=== PATIENT | female | born 1980 | race Caucasian/White ===

== ENCOUNTER 2017-05-13 12:34 | Emergency (ER) | payer BC ==
[~2017-05-13] VITALS: Ht 172.7 cm; Wt 131.5 kg
[~2017-05-13 12:34] MED LIST: BUTALB-ACETAMI1 EACH PO; CIPROFLOXACIN500 M4 PO; CIPROFLOXACIN500 MG PO; COMPAZINE10 MG PO; GLUCOPHAGE1000 MG PO; HYDR25T PO; HYDROCHLOROTHIA25 M1 PO; HYDROCODONE BIT1 T11 PO; LISINOPRIL20 MG PO; LISINOPRIL40 MG PO; MELOXICAM7.5 MG PO; MOTRIN800 MG PO; POTASSIUM CITRA; PYRIDIUM100 MG PO; PYRIDIUM200 MG PO; VITAMIN D50000 I3 PO; ZOLOFT50 MG PO; Zofran4 MG PO
[2017-05-13 13:31] LABS: BASO # 0.1 10*3/uL (0.0-0.1); BASO % 0.7 % (0.0-1.0); EOS # 0.1 10*3/uL (0.0-0.4); EOS % 1.6 % (1.0-4.0); HEMATOCRIT 41.3 % (37.0-47.0); HEMOGLOBIN 14.6 g/dl (12.0-16.0); LYMPH # 2.8 10*3/uL (1.3-4.4); LYMPH % 37.1 % (27.0-41.0); MEAN CELL VOLUME 91.4 fl (81.0-99.0); MEAN CORPUSCULAR HGB 32.3 pg (27.0-31.0); MEAN CORPUSCULAR HGB CONC 35.4 g/dl (33.0-37.0); MONO # 0.4 10*3/uL (0.1-1.0); MONO % 5.2 % (3.0-9.0); NEUT # 4.2 10*3/uL (2.3-7.9); NEUT % 55.1 % (47.0-73.0); PLATELET COUNT AUTOMATED 305 10*3/uL (130-400); RED BLOOD COUNT 4.52 10*6/uL (4.10-5.10); RED CELL DISTRI WIDTH 12.2 % (0-14.5); WHITE BLOOD COUNT 7.7 10*3/uL (4.8-10.8)
[2017-05-13 13:36] LABS: BILIRUBIN NEGATIVE (NEGATIVE); BLOOD 1+ (NEGATIVE); CLARITY CLEAR (CLEAR); COLOR YELLOW (YELLOW); GLUCOSE NEGATIVE (NEGATIVE); KETONE NEGATIVE (NEGATIVE); LEUKO ESTERASE NEGATIVE (NEGATIVE); NITRITE NEGATIVE (NEGATIVE); PH 5.5 (5.0-9.0); PROTEIN 2+ (NEGATIVE); UROBILINOGEN 0.2 E.U./dl (0.2-1.0)
[2017-05-13 13:46] LABS: BACTERIA TRACE; URINE REFLEX COMMENT YES (NO)
[2017-05-13 13:48] LABS: ALBUMIN 3.5 gm/dl (3.1-4.5); ALKALINE PHOSPHATASE 83 U/L (45-117); BILIRUBIN, TOTAL 0.3 mg/dl (0.2-1.0); BUN 13 mg/dl (7-24); CARBON DIOXIDE 26 mmol/L (21-32); CHLORIDE 100 mmol/L (98-107); EST GLOM FILT AFRICAN AMERICAN > 60 ml/min; GLUCOSE 212 mg/dL (65-99); POTASSIUM 3.5 mmol/L (3.5-5.1); SGOT/AST 43 IU/L (3-35); SGPT/ALT 71 U/L (12-78); SODIUM 141 mmol/L (136-145); TOTAL PROTEIN 7.8 gm/dL (6.4-8.2)
[2017-05-13 13:51] LABS: TROPONIN I < 0.015 ng/ml (<0.045)
[2017-05-13 15:29] LABS: LA>2 REFLEX 2 HR DRAW NOW
[2017-05-14 13:04] LABS: LYME AB/TOTAL IMMUNOGLOBULINS <0.91 ISR (0.00-0.90)
== END 2017-05-13 17:15 | disposition home or self-care (01) ==
LOC: ED 12:34
PROVIDERS: Registered Nurse
DX: R10.9 Unspecified abdominal pain (principal); Z88.1 Allergy status to other antibiotic agents; Z88.2 Allergy status to sulfonamides; Z90.5 Acquired absence of kidney; Z79.899 Other long term (current) drug therapy

== ENCOUNTER 2018-02-20 09:03 | Emergency (ER) | payer BC ==
[~2018-02-20] VITALS: Ht 172.7 cm; Wt 128.4 kg
[2018-02-20 09:16] LABS: BILIRUBIN NEGATIVE (NEGATIVE); BLOOD NEGATIVE (NEGATIVE); CLARITY CLEAR (CLEAR); COLOR YELLOW (YELLOW); GLUCOSE 3+ (NEGATIVE); KETONE NEGATIVE (NEGATIVE); LEUKO ESTERASE NEGATIVE (NEGATIVE); NITRITE NEGATIVE (NEGATIVE); SPECIFIC GRAVITY 1.025 (1.005-1.030); UROBILINOGEN 0.2 E.U./dl (0.2-1.0)
[2018-02-20 09:28] LABS: BACTERIA 1+
[2018-02-20] MEDS ORDERED: ALLOPURINOL100 MG PO (09:29)
[2018-02-20 09:33] LABS: BASO # 0.1 10*3/uL (0.0-0.1); BASO % 0.6 % (0.0-1.0); EOS # 0.2 10*3/uL (0.0-0.4); HEMOGLOBIN 15.6 g/dl (12.0-16.0); LYMPH # 2.5 10*3/uL (1.3-4.4); MEAN CELL VOLUME 91.5 fl (81.0-99.0); MEAN CORPUSCULAR HGB 31.7 pg (27.0-31.0); MEAN CORPUSCULAR HGB CONC 34.7 g/dl (33.0-37.0); MEAN PLATELET VOLUME 10.4 fl (9.6-12.3); MONO # 0.5 10*3/uL (0.1-1.0); MONO % 5.4 % (3.0-9.0); NEUT # 5.2 10*3/uL (2.3-7.9); NEUT % 61.6 % (47.0-73.0); PLATELET COUNT AUTOMATED 264 10*3/uL (130-400); RED BLOOD COUNT 4.92 10*6/uL (4.10-5.10); RED CELL DISTRI WIDTH 12.2 % (0-14.5); WHITE BLOOD COUNT 8.5 10*3/uL (4.8-10.8)
[2018-02-20 09:48] LABS: ALBUMIN 3.2 gm/dl (3.1-4.5); ALKALINE PHOSPHATASE 89 U/L (45-117); BUN 11 mg/dl (7-24); CHLORIDE 102 mmol/L (98-107); CREATININE 0.84 mg/dL (0.55-1.02); POTASSIUM 4.2 mmol/L (3.5-5.1); SGOT/AST 23 IU/L (3-35); SGPT/ALT 45 U/L (12-78); SODIUM 135 mmol/L (136-145); TOTAL PROTEIN 7.9 gm/dL (6.4-8.2)
== END 2018-02-20 11:12 | disposition home or self-care (01) ==
LOC: ED 09:03
PROVIDERS: Nurse Practitioner Family
DX: N20.0 Calculus of kidney (principal); R73.9 Hyperglycemia, unspecified; R03.0 Elevated blood-pressure reading, without diagnosis of hypertension; G43.909 Migraine, unspecified, not intractable, without status migrainosus; Z90.5 Acquired absence of kidney; Z88.1 Allergy status to other antibiotic agents; Z79.899 Other long term (current) drug therapy

== ENCOUNTER 2018-04-08 21:50 | Emergency (ER) | payer BC ==
[~2018-04-08] VITALS: Ht 172.7 cm; Wt 124.7 kg
[~2018-04-08 21:50] MED LIST changes: +ALLOPURINOL100 MG PO
[2018-04-08 22:18] LABS: BASO # 0.1 10*3/uL (0.0-0.1); BASO % 0.7 % (0.0-1.0); EOS # 0.2 10*3/uL (0.0-0.4); EOS % 1.9 % (1.0-4.0); HEMATOCRIT 41.2 % (37.0-47.0); HEMOGLOBIN 14.6 g/dl (12.0-16.0); LYMPH # 4.1 10*3/uL (1.3-4.4); MEAN CELL VOLUME 90.7 fl (81.0-99.0); MEAN CORPUSCULAR HGB 32.2 pg (27.0-31.0); MEAN CORPUSCULAR HGB CONC 35.4 g/dl (33.0-37.0); MEAN PLATELET VOLUME 10.2 fl (9.6-12.3); MONO # 0.5 10*3/uL (0.1-1.0); MONO % 4.2 % (3.0-9.0); NEUT # 7.8 10*3/uL (2.3-7.9); NEUT % 60.8 % (47.0-73.0); PLATELET COUNT AUTOMATED 309 10*3/uL (130-400); RED BLOOD COUNT 4.54 10*6/uL (4.10-5.10); RED CELL DISTRI WIDTH 12.2 % (0-14.5); WHITE BLOOD COUNT 12.9 10*3/uL (4.8-10.8)
[2018-04-08 22:28] LABS: BILIRUBIN NEGATIVE (NEGATIVE); BLOOD 1+ (NEGATIVE); CLARITY SL CLOUDY (CLEAR); COLOR YELLOW (YELLOW); GLUCOSE 1+ (NEGATIVE); KETONE TRACE (NEGATIVE); LEUKO ESTERASE NEGATIVE (NEGATIVE); NITRITE NEGATIVE (NEGATIVE); PH 6.5 (5.0-9.0); SPECIFIC GRAVITY >= 1.030 (1.005-1.030)
[2018-04-08 22:32] LABS: ALBUMIN 3.2 gm/dl (3.1-4.5); ALKALINE PHOSPHATASE 83 U/L (45-117); BUN 14 mg/dl (7-24); CHLORIDE 102 mmol/L (98-107); CREATININE 1.05 mg/dL (0.55-1.02); LIPASE 438 U/L (73-393); POTASSIUM 3.6 mmol/L (3.5-5.1); SGOT/AST 25 IU/L (3-35); SGPT/ALT 49 U/L (12-78); SODIUM 140 mmol/L (136-145); TOTAL PROTEIN 7.2 gm/dL (6.4-8.2)
[2018-04-08 22:45] LABS: BACTERIA 3+; EPITHELIAL CELLS 21-30
[2018-04-09] MEDS ORDERED: ZOFRAN ODT4 MG SL ×2 (01:05→01:06)
[2018-04-09] MEDS ORDERED: NORCO 5-325 TA1 EACH PO (01:06)
== END 2018-04-09 01:47 | disposition home or self-care (01) ==
LOC: ED 21:50
PROVIDERS: Physician Assistant
DX: K45.8 Other specified abdominal hernia without obstruction or gangrene (principal); Z79.899 Other long term (current) drug therapy; Z88.2 Allergy status to sulfonamides; Z88.8 Allergy status to other drugs, medicaments and biological substances; Z90.49 Acquired absence of other specified parts of digestive tract

== ENCOUNTER → 2018-04-16 | Outpatient (CLI) | payer BC ==
[~2018-04-16] MED LIST changes: +NORCO 5-325 TA1 EACH PO; +ZOFRAN ODT4 MG SL
[2018-04-16 13:28] LABS: BILIRUBIN NEGATIVE (NEGATIVE); BLOOD NEGATIVE (NEGATIVE); COLOR YELLOW (YELLOW); GLUCOSE NEGATIVE (NEGATIVE); KETONE NEGATIVE (NEGATIVE); LEUKO ESTERASE NEGATIVE (NEGATIVE); NITRITE NEGATIVE (NEGATIVE); SPECIFIC GRAVITY 1.025 (1.005-1.030); UROBILINOGEN 0.2 E.U./dl (0.2-1.0)
[2018-04-16 13:38] LABS: BACTERIA 2+; CLARITY SL CLOUDY (CLEAR)
[2018-04-16 13:39] LABS: BASO # 0.1 10*3/uL (0.0-0.1); BASO % 0.8 % (0.0-1.0); EOS # 0.2 10*3/uL (0.0-0.4); HEMATOCRIT 41.4 % (37.0-47.0); HEMOGLOBIN 14.3 g/dl (12.0-16.0); LYMPH # 2.8 10*3/uL (1.3-4.4); LYMPH % 35.1 % (27.0-41.0); MEAN CELL VOLUME 90.6 fl (81.0-99.0); MEAN CORPUSCULAR HGB 31.3 pg (27.0-31.0); MEAN CORPUSCULAR HGB CONC 34.5 g/dl (33.0-37.0); MEAN PLATELET VOLUME 10.1 fl (9.6-12.3); MONO # 0.4 10*3/uL (0.1-1.0); MONO % 4.8 % (3.0-9.0); NEUT # 4.5 10*3/uL (2.3-7.9); NEUT % 56.8 % (47.0-73.0); PLATELET COUNT AUTOMATED 261 10*3/uL (130-400); RED BLOOD COUNT 4.57 10*6/uL (4.10-5.10); RED CELL DISTRI WIDTH 12.2 % (0-14.5); WHITE BLOOD COUNT 7.9 10*3/uL (4.8-10.8)
[2018-04-16 13:53] LABS: BUN 11 mg/dl (7-24); CHLORIDE 104 mmol/L (98-107); CREATININE 0.87 mg/dL (0.55-1.02); POTASSIUM 3.8 mmol/L (3.5-5.1); SODIUM 140 mmol/L (136-145)
[2018-04-16 14:28] LABS: ACT PARTIAL THROMBO TIME 21.9 SECONDS (20.8-31.5); INTERNATIONAL NORM RATIO 0.9 (2.0-3.5)
== END | disposition home or self-care (01) ==
LOC: LAB 12:32
PROVIDERS: Surgery
DX: K46.9 Unspecified abdominal hernia without obstruction or gangrene (principal)

== ENCOUNTER → 2018-04-22 | Day surgery (SDC) | payer BC ==
[2018-04-22] VITALS (8 sets, daily range): BP systolic 127–149; BP diastolic 74–85
[~2018-04-22] VITALS: Ht 172.7 cm; Wt 124.7 kg
--- NOTE | ~2018-04-22 | O ---
[place], [place] OPERATIVE NOTE NAME: [facility]ÍA ERVIN [facility] [id number] UNIT #: [id number] ROOM: DOCTOR: ZAKI ORR MD BIRTHDATE: [birth year] DOS: 04/22/2018 PREOPERATIVE DIAGNOSIS: Ventral hernia (spigelian). POSTOPERATIVE DIAGNOSIS: Ventral hernia (spigelian). PROCEDURE: Repair of ventral hernia. SURGEON: Zaki Orr MD [facility] DIRECTOR: ROGELIO. ANESTHESIA: General. 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 The procedure and its complications were explained to the patient in detail preoperatively. Complications that were discussed included but were not limited to bleeding, infection, hematoma/seroma/abscess formation, damage to lying vital structures and recurrence. She agreed to proceed. DESCRIPTION OF PROCEDURE: After identifying the patient, the patient was brought to the operating suite and laid in the supine position. After induction of general anesthesia, time-out procedure was called and the parts were then painted and draped in the usual sterile fashion. A transverse incision was made over the area of the hernia. The skin and the subcutaneous tissue were incised. The musculature was identified and the fascia was incised. The hernial defect was identified in the intramuscular plane, which was approximately 0.5 cm in diameter. At this point, the musculature was approximated with the help of interrupted 0 Prolene in order to close the defect. The fascia was approximated as well with the help of 0 Prolene in an interrupted fashion. The subcutaneous tissue was then irrigated and approximated with the help of 3-0 Vicryl in a running fashion and the skin edges approximated with the help of 4-0 Vicryl in a subcuticular running fashion after the edges were infiltrated with 1% plain lidocaine. A dressing was placed. The patient tolerated the procedure well and was taken to the recovery room in stable fashion. There were no complications. Dr. Zaki Orr, the attending surgeon, was present throughout the operating case. [place], [place] OPERATIVE NOTE NAME: MARÍA ERVIN UNIT #: [id number] ROOM: DOCTOR: ZAKI ORR MD BIRTHDATE: [birth year] Zaki Orr MD CM:MAHIORD:OPERATIVE NOTE [id number] ZAKI ORR MD 04/22/18 1237 interface
== END | disposition home or self-care (01) ==
LOC: SDC 04-16 12:30
DX: K43.9 Ventral hernia without obstruction or gangrene (principal); I10 Essential (primary) hypertension; F41.9 Anxiety disorder, unspecified; F32.9 Major depressive disorder, single episode, unspecified; G47.33 Obstructive sleep apnea (adult) (pediatric); E66.01 Morbid (severe) obesity due to excess calories; Z98.890 Other specified postprocedural states; Z90.5 Acquired absence of kidney; Z87.442 Personal history of urinary calculi; Z79.899 Other long term (current) drug therapy; Z88.8 Allergy status to other drugs, medicaments and biological substances; Z83.3 Family history of diabetes mellitus; Z80.0 Family history of malignant neoplasm of digestive organs; Z87.01 Personal history of pneumonia (recurrent); Z90.49 Acquired absence of other specified parts of digestive tract; Z68.41 Body mass index [BMI] 40.0-44.9, adult; Z87.440 Personal history of urinary (tract) infections; Z82.49 Family history of ischemic heart disease and other diseases of the circulatory system

== ENCOUNTER 2019-03-17 18:52 | Emergency (ER) | payer BC ==
[~2019-03-17] VITALS: Ht 172.7 cm; Wt 122.5 kg
[~2019-03-17 18:52] MED LIST changes: +CIPRO500 MG PO; +MIRALAX POWDER17 G1 PO
[2019-03-17 19:21] LABS: BILIRUBIN NEGATIVE (NEGATIVE); BLOOD 3+ (NEGATIVE); CLARITY SL CLOUDY (CLEAR); COLOR YELLOW (YELLOW); GLUCOSE NEGATIVE (NEGATIVE); KETONE NEGATIVE (NEGATIVE); LEUKO ESTERASE NEGATIVE (NEGATIVE); NITRITE NEGATIVE (NEGATIVE); UROBILINOGEN 0.2 E.U./dl (0.2-1.0)
[2019-03-17 19:38] LABS: BACTERIA 3+; EPITHELIAL CELLS 15-20; RBC TNTC rbc/hpf (0-2); WBC 21-30 wbc/hpf (0-5)
[2019-03-17 20:05] LABS: BASO # 0.1 10*3/uL (0.0-0.1); BASO % 0.7 % (0.0-1.0); EOS # 0.2 10*3/uL (0.0-0.4); EOS % 1.4 % (1.0-4.0); HEMATOCRIT 41.8 % (37.0-47.0); HEMOGLOBIN 14.6 g/dl (12.0-16.0); LYMPH # 3.2 10*3/uL (1.3-4.4); LYMPH % 28.2 % (27.0-41.0); MEAN CELL VOLUME 91.7 fl (81.0-99.0); MEAN CORPUSCULAR HGB CONC 34.9 g/dl (33.0-37.0); MEAN PLATELET VOLUME 9.7 fl (9.6-12.3); MONO # 0.6 10*3/uL (0.1-1.0); MONO % 4.9 % (3.0-9.0); NEUT # 7.3 10*3/uL (2.3-7.9); NEUT % 64.4 % (47.0-73.0); PLATELET COUNT AUTOMATED 277 10*3/uL (130-400); RED BLOOD COUNT 4.56 10*6/uL (4.10-5.10); RED CELL DISTRI WIDTH 12.6 % (0-14.5); WHITE BLOOD COUNT 11.3 10*3/uL (4.8-10.8)
[2019-03-17 20:21] LABS: ALBUMIN 3.2 gm/dl (3.1-4.5); ALKALINE PHOSPHATASE 70 U/L (45-117); BUN 10 mg/dl (7-24); CHLORIDE 105 mmol/L (98-107); CREATININE 0.83 mg/dL (0.55-1.02); LIPASE 258 U/L (73-393); POTASSIUM 3.5 mmol/L (3.5-5.1); SGOT/AST 14 IU/L (3-35); SGPT/ALT 36 U/L (12-78); SODIUM 138 mmol/L (136-145); TOTAL PROTEIN 7.6 gm/dL (6.4-8.2)
[2019-03-17] MEDS ORDERED: AUGMENTIN 875875 MG PO (22:29)
[2019-03-17] MEDS ORDERED: NORCO 5-325 TA1 EACH PO (22:32)
[2019-04-20] MEDS ORDERED: CEFUROXIME250 MG PO (17:47)
== END 2019-03-17 22:44 | disposition home or self-care (01) ==
LOC: ED 18:52
PROVIDERS: Emergency Medicine
DX: N39.0 Urinary tract infection, site not specified (principal); N13.2 Hydronephrosis with renal and ureteral calculous obstruction; G43.909 Migraine, unspecified, not intractable, without status migrainosus; Z88.2 Allergy status to sulfonamides; Z79.899 Other long term (current) drug therapy; Z90.5 Acquired absence of kidney; Z96.0 Presence of urogenital implants

== ENCOUNTER → 2019-06-10 | Outpatient (CLI) | payer BC ==
[~2019-06-10] MED LIST changes: +AUGMENTIN 875875 MG PO; +CEFUROXIME250 MG PO
[2019-06-10 14:14] LABS: BILIRUBIN NEGATIVE (NEGATIVE); BLOOD TRACE-LYSED (NEGATIVE); CLARITY SL CLOUDY (CLEAR); COLOR YELLOW (YELLOW); GLUCOSE NEGATIVE (NEGATIVE); KETONE 1+ (NEGATIVE); LEUKO ESTERASE NEGATIVE (NEGATIVE); NITRITE POSITIVE (NEGATIVE); SPECIFIC GRAVITY >= 1.030 (1.005-1.030); UROBILINOGEN 0.2 E.U./dl (0.2-1.0)
[2019-06-10 14:29] LABS: ALBUMIN 3.2 gm/dl (3.1-4.5); BACTERIA 2+; CREATININE 1.25 mg/dL (0.55-1.02); PHOSPHOROUS 2.5 mg/dL (2.5-4.9); POTASSIUM 3.6 mmol/L (3.5-5.1); WBC TNTC wbc/hpf (0-5)
== END | disposition home or self-care (01) ==
LOC: LAB 13:32
PROVIDERS: Internal Medicine Nephrology
DX: R80.9 Proteinuria, unspecified (principal)

== ENCOUNTER → 2019-06-13 | Outpatient (CLI) | payer BC | END | disposition home or self-care (01) | LOC: ORTHO 00:48 | DX: M25.561 Pain in right knee (principal) ==

== ENCOUNTER → 2019-11-03 | Outpatient (CLI) | payer BC ==
[2019-11-03 17:29] LABS: FREE T4 1.59 ng/dl (0.76-1.46); THYROID STIM HORMONE (HS) 0.038 uIU/ml (0.358-4.75)
== END | disposition home or self-care (01) ==
LOC: US 15:47
PROVIDERS: Nurse Practitioner Primary Care
DX: E04.1 Nontoxic single thyroid nodule (principal); R59.0 Localized enlarged lymph nodes; R79.89 Other specified abnormal findings of blood chemistry

== ENCOUNTER → 2020-04-25 | Outpatient (CLI) | payer BC | END | disposition home or self-care (01) | LOC: CARD 10:00 | DX: I10 Essential (primary) hypertension (principal); R00.2 Palpitations ==

== ENCOUNTER → 2020-04-26 | Outpatient (CLI) | payer BC | END | disposition home or self-care (01) | LOC: RESCLI 10:59 | DX: E11.9 Type 2 diabetes mellitus without complications (principal); E66.01 Morbid (severe) obesity due to excess calories; E55.9 Vitamin D deficiency, unspecified; F39 Unspecified mood [affective] disorder; M10.9 Gout, unspecified; E28.2 Polycystic ovarian syndrome; G43.909 Migraine, unspecified, not intractable, without status migrainosus; G47.30 Sleep apnea, unspecified; Z68.41 Body mass index [BMI] 40.0-44.9, adult; Z79.899 Other long term (current) drug therapy; Z90.49 Acquired absence of other specified parts of digestive tract; Z98.890 Other specified postprocedural states ==

== ENCOUNTER 2020-07-22 12:56 | Emergency (ER) | payer BC ==
[~2020-07-22] VITALS: Ht 172.7 cm; Wt 124.7 kg
[2020-07-22 14:14] LABS: BASO # 0.1 10*3/uL (0.0-0.1); BASO % 0.8 % (0.0-1.0); EOS # 0.2 10*3/uL (0.0-0.4); EOS % 2.6 % (1.0-4.0); HEMATOCRIT 38.2 % (37.0-47.0); LYMPH # 2.6 10*3/uL (1.3-4.4); LYMPH % 32.9 % (27.0-41.0); MEAN CELL VOLUME 92.9 fl (81.0-99.0); MEAN CORPUSCULAR HGB 31.1 pg (27.0-31.0); MEAN CORPUSCULAR HGB CONC 33.5 g/dl (33.0-37.0); MEAN PLATELET VOLUME 9.8 fl (9.6-12.3); MONO # 0.4 10*3/uL (0.1-1.0); MONO % 5.2 % (3.0-9.0); NEUT # 4.6 10*3/uL (2.3-7.9); NEUT % 58.1 % (47.0-73.0); PLATELET COUNT AUTOMATED 247 10*3/uL (130-400); RED BLOOD COUNT 4.11 10*6/uL (4.10-5.10); RED CELL DISTRI WIDTH 12.3 % (0-14.5); WHITE BLOOD COUNT 7.9 10*3/uL (4.8-10.8)
[2020-07-22 14:16] LABS: ALBUMIN 3.1 gm/dl (3.1-4.5); ALKALINE PHOSPHATASE 75 U/L (45-117); BUN 13 mg/dl (7-24); CHLORIDE 110 mmol/L (98-107); CREATININE 0.82 mg/dL (0.55-1.02); POTASSIUM 3.8 mmol/L (3.5-5.1); SGOT/AST 15 IU/L (3-35); SGPT/ALT 33 U/L (12-78); SODIUM 136 mmol/L (136-145); TOTAL PROTEIN 7.2 gm/dL (6.4-8.2)
[2020-07-22 14:20] LABS: BILIRUBIN NEGATIVE; CLARITY CLOUDY (CLEAR); COLOR YELLOW (YELLOW); GLUCOSE NEGATIVE; KETONE NEGATIVE; SPECIFIC GRAVITY 1.025 (1.001-1.030)
[2020-07-22 14:21] LABS: BLOOD NEGATIVE (NEGATIVE); LEUKO ESTERASE 1+ (NEGATIVE); NITRITE NEGATIVE (NEGATIVE); PH 6.5 (4.5-8.0); UROBILINOGEN 0.2 E.U./dl (0.0-1.0)
[2020-07-22 14:22] LABS: BACTERIA 2+; EPITHELIAL CELLS TNTC; RBC 0-2 rbc/hpf (0-2); WBC 31-40 wbc/hpf (0-5)
[2020-07-22] MEDS ORDERED: OMNICEF300 MG PO (18:10)
[2020-07-23] MEDS ORDERED: VITAMIN D350 MC2 PO (13:43)
[2020-07-23] MEDS ORDERED: LISINOPRIL20 MG PO (13:44)
[2020-07-23] MEDS ORDERED: VICTOZA 3-0.6 MG/0.1 SQ (13:45)
[2020-07-23] MEDS ORDERED: ZOLOFT50 MG PO (13:45)
[2020-07-23] MEDS ORDERED: BUSPAR5 MG PO (13:46)
== END 2020-07-22 18:20 | disposition home or self-care (01) ==
LOC: ED 12:56
PROVIDERS: Nurse Practitioner Family
DX: N39.0 Urinary tract infection, site not specified (principal); Z88.8 Allergy status to other drugs, medicaments and biological substances; Z79.899 Other long term (current) drug therapy

== ENCOUNTER 2020-07-23 10:14 | Inpatient (IN) | payer BC ==
[~2020-07-23] VITALS: Ht 172.7 cm; Wt 125.0 kg
[~2020-07-23 10:14] MED LIST changes: +OMNICEF300 MG PO
[2020-07-23 10:34] VITALS: BP 150/94
[2020-07-23 11:21] LABS: BASO # 0.1 10*3/uL (0.0-0.1); BASO % 0.8 % (0.0-1.0); EOS # 0.2 10*3/uL (0.0-0.4); EOS % 2.4 % (1.0-4.0); HEMATOCRIT 36.9 % (37.0-47.0); LYMPH # 2.2 10*3/uL (1.3-4.4); LYMPH % 27.7 % (27.0-41.0); MEAN CELL VOLUME 93.9 fl (81.0-99.0); MEAN CORPUSCULAR HGB 31.8 pg (27.0-31.0); MEAN CORPUSCULAR HGB CONC 33.9 g/dl (33.0-37.0); MONO # 0.4 10*3/uL (0.1-1.0); NEUT # 5.1 10*3/uL (2.3-7.9); NEUT % 63.6 % (47.0-73.0); PLATELET COUNT AUTOMATED 243 10*3/uL (130-400); RED BLOOD COUNT 3.93 10*6/uL (4.10-5.10); RED CELL DISTRI WIDTH 12.4 % (0-14.5)
[2020-07-23 11:36] LABS: BILIRUBIN NEGATIVE; BLOOD NEGATIVE (NEGATIVE); CLARITY CLOUDY (CLEAR); COLOR YELLOW (YELLOW); GLUCOSE NEGATIVE; KETONE NEGATIVE; LEUKO ESTERASE NEGATIVE (NEGATIVE); NITRITE NEGATIVE (NEGATIVE); UROBILINOGEN 0.2 E.U./dl (0.0-1.0)
[2020-07-23 11:37] LABS: EPITHELIAL CELLS 21-30
[2020-07-23 11:40] LABS: ALBUMIN 2.9 gm/dl (3.1-4.5); ALKALINE PHOSPHATASE 58 U/L (45-117); BUN 10 mg/dl (7-24); CHLORIDE 109 mmol/L (98-107); CREATININE 0.85 mg/dL (0.55-1.02); LIPASE 268 U/L (73-393); SGOT/AST 12 IU/L (3-35); SGPT/ALT 33 U/L (12-78); SODIUM 140 mmol/L (136-145); TOTAL PROTEIN 6.8 gm/dL (6.4-8.2)
[2020-07-23 11:40] LABS: BACTERIA 1+; MUCOUS 1+
[2020-07-23 12:13] VITALS: BP 129/75
--- NOTE | 2020-07-23 13:10 | NUR ---
PT TRANSPORTED TO ROOM 527 WITH ALL BELONGINGS, SBAR FAXED, REPORTS GIVEN AT BEDSIDE.
[2020-07-23 13:20] VITALS: BP 149/85
--- NOTE | 2020-07-23 13:20 | NUR ---
Time: 1319 A 39 year old FEMALE admitted to under services of MARIAH INIGUEZ DO. Pt. arrived via stretcher from ER. Chief complaint: LEFT SIDED ABDOMINAL PAIN THAT RADIATES AROUND TO HER BACK. STEWART LEVINE
[2020-07-23] MEDS ORDERED: VITAMIN D350 MC2 PO (13:43)
[2020-07-23] MEDS ORDERED: LISINOPRIL20 MG PO (13:44)
[2020-07-23] MEDS ORDERED: VICTOZA 3-0.6 MG/0.1 SQ (13:45)
[2020-07-23] MEDS ORDERED: ZOLOFT50 MG PO (13:45)
[2020-07-23] MEDS ORDERED: BUSPAR5 MG PO (13:46)
--- NOTE | 2020-07-23 14:08 | NUR ---
NOTIFIED MED REC UP TO DATE.
--- NOTE | 2020-07-23 14:26 | NUR ---
MEDICATED WITH PRN NORCO FOR CO LEFT SIDED ABDOMINAL PAIN THAT RADIATES AROUND TO HER BACK RATED A 6/10. WILL ASSESS EFFECTIVENESS.
--- NOTE | 2020-07-23 15:26 | NUR ---
NORCO EFFECTIVE PER PATIENT.
[2020-07-23 16:00] VITALS: BP 122/64
[2020-07-23 20:00] VITALS: BP 140/81
--- NOTE | 2020-07-23 21:25 | NUR ---
PT RESTING IN BED. RESP-EASY AND REUGLAR. BSG-130, SEE EMAR. C/O LEFT FLANK PAIN, RATES PAIN 5 ON PAIN SCALE 0-10. MEDICATED WITH NORCO PO PER PRN ORDER, SEE EMAR. IVF INFUSING WITH NO PROBLEM. SEE SHIFT ASSESSMENT. CALL LIGHT IN REACH.
--- NOTE | 2020-07-23 22:30 | NUR ---
RESTING IN BED. STATES PAIN MEDICATION HELPED. CALL LIGHT IN REACH.
[2020-07-24] VITALS: BP 122/61
--- NOTE | 2020-07-24 00:20 | NUR ---
PT RESTING IN BED. RESP-EASY AND REGULAR. IVF INFUSING WITH NO PROBLEM. NO C/O PAIN AT THIS TIME. CALL LIGHT IN REACH. SEE SHIFT ASSESSMENT.
[2020-07-24 06:49] LABS: BASO # 0.1 10*3/uL (0.0-0.1); BASO % 0.8 % (0.0-1.0); EOS # 0.2 10*3/uL (0.0-0.4); EOS % 2.8 % (1.0-4.0); HEMATOCRIT 35.7 % (37.0-47.0); LYMPH # 2.8 10*3/uL (1.3-4.4); LYMPH % 37.2 % (27.0-41.0); MEAN CELL VOLUME 94.2 fl (81.0-99.0); MEAN CORPUSCULAR HGB 31.4 pg (27.0-31.0); MEAN CORPUSCULAR HGB CONC 33.3 g/dl (33.0-37.0); MEAN PLATELET VOLUME 10.3 fl (9.6-12.3); MONO # 0.4 10*3/uL (0.1-1.0); MONO % 5.5 % (3.0-9.0); NEUT # 4.1 10*3/uL (2.3-7.9); NEUT % 53.3 % (47.0-73.0); PLATELET COUNT AUTOMATED 235 10*3/uL (130-400); RED BLOOD COUNT 3.79 10*6/uL (4.10-5.10); RED CELL DISTRI WIDTH 12.6 % (0-14.5); WHITE BLOOD COUNT 7.6 10*3/uL (4.8-10.8)
[2020-07-24 06:53] LABS: BUN 10 mg/dl (7-24); CHLORIDE 110 mmol/L (98-107); CREATININE 0.79 mg/dL (0.55-1.02); POTASSIUM 4.1 mmol/L (3.5-5.1); SODIUM 140 mmol/L (136-145)
[2020-07-24 08:00] VITALS: BP 144/71
--- NOTE | 2020-07-24 08:52 | NUR ---
medicated with po norco as ordered per pt request for c/o pain to left flank rated 8/10.
--- NOTE | 2020-07-24 10:00 | NUR ---
MEDICATION EFFECTIVE FOR PAIN PER PT.
[2020-07-24 12:00] VITALS: BP 136/69
--- NOTE | 2020-07-24 15:33 | NUR ---
MEDICATED WITH PO NORCO ORDERED PER PT REQUEST FOR C/O LEFT FLANK PAIN RATED 8/10.
[2020-07-24 16:00] VITALS: BP 127/71
--- NOTE | 2020-07-24 16:30 | NUR ---
MEDICATION EFFECTIVE FOR PAIN.
[2020-07-24 20:00] VITALS: BP 138/81
--- NOTE | 2020-07-24 20:38 | NUR ---
PT C/O LEFT FLANK PAIN, RATES PAIN 6 ON PAIN SCALE 0-10. MEDICATED WITH NORCO PO PER PRN ORDER, SEE EMAR. BSG-150. SKIN W/D. CALL LIGHT IN REACH.
--- NOTE | 2020-07-24 21:30 | NUR ---
PT RESTING IN BED WITH HOB ELEVATED. MEDICATION SEEMS TO BE EFFECTIVE. CALL LIGHT IN REACH.
[2020-07-25] VITALS: BP 117/51
--- NOTE | 2020-07-25 04:45 | NUR ---
PT C/O LEFT SIDE/RIB PAIN, RATES PAIN 7 ON PAIN SCALE 0-10. MEDICATED WITH NORCO PO PER PRN ORDER, SEE EMAR. CALL LIGHT INR EACH.
--- NOTE | 2020-07-25 05:40 | NUR ---
RESTING IN BED. STATES PAIN MEDICATION HELPS. CALL LIGHT IN REACH.
--- NOTE | 2020-07-25 06:10 | NUR ---
RESTING IN BED. NO C/O AT THIS TIME. BSG-145, SEE EMAR. CALL LIGHT IN REACH.
--- NOTE | 2020-07-25 07:00 | NUR ---
ARRIVED ON SHIFT, REPORT RECEIVED FROM OFFGOING NURSE, ASSUMED CARE OF PATIENT.
--- NOTE | 2020-07-25 07:00 | NUR ---
ARRIVED ON SHIFT, REPORT RECEIVED FROM OFFGOING NURSE, ASSUMED CARE OF PATIENT.
--- NOTE | 2020-07-25 07:45 | NUR ---
Shift chart check completed.
--- NOTE | 2020-07-25 07:50 | NUR ---
INTRODUCED SELF TO PATIENT, BED IN LOW POSITION WITH WHEEL LOCKS ENGAGED, SIDE RAILS UP X 2 FOR TURNING AND REPOSITIONING, CALL LIGHT WITHIN REACH, NO NEEDS VOICED AT THIS TIME WHITE BOARD UPDATED.
--- NOTE | 2020-07-25 07:58 | NUR ---
Shift chart check completed.
[2020-07-25 08:00] VITALS: BP 120/63
--- NOTE | 2020-07-25 09:00 | NUR ---
[employer] [place] Yard[employer] in to talk to patient. Patient states lives at home with and family. There are no steps in the home. Physician: claudio montoya Pharmacy: [facility] Home health services: none Patient's level of ADLs: INDEPENDENT Patient has working utilities: all working DME: none Follow-up physician's appointment after d/c: will be made by hospitalist nurse director upon discharge Does patient want to access PORTAL?: no Discharge plan discussed with patient, she states she lives at home with family, she is independent in adls and ambulation, she states she will return home when discharged and denies any home needs, case mangaement will follow. CHILO KOWALSKI
--- NOTE | 2020-07-25 10:03 | NUR ---
PATIENT C/O LEFT FLANK PAIN 05/02 MEDICATED WITH NORCO ORDERED PRN
--- NOTE | 2020-07-25 11:00 | NUR ---
PER PATIENT NORCO EFFECTIVE FOR ABD PAIN CURRENT PAIN LEVEL 3/10
[2020-07-25 12:00] VITALS: BP 132/81
--- NOTE | 2020-07-25 14:08 | NUR ---
PATIENT C/O LEFT FLANL PAIN RATES 6/10 MEDICATED WITH NORCO ORDERED PRN.
--- NOTE | 2020-07-25 14:48 | NUR ---
Discharge instructions reviewed with patient/family. Patient receptive and verbalizes understanding. Follow-up care arranged. Written instructions given to patient/family, IV REMOVED, PATIENT NON-MONITORED, REFUSED W/C FOR DISCHARGE. DANAE CISSE
== END 2020-07-25 14:48 | disposition home or self-care (01) | DRG 690 ==
LOC: ED 10:14 → 4E 12:02 → EDHOLD 12:02 → 4E 12:57
PROVIDERS: Emergency Medicine; Internal Medicine; Physician Assistant; ADMIT Internal Medicine; ATTEND Internal Medicine
DX: N30.01 Acute cystitis with hematuria (principal); E44.0 Moderate protein-calorie malnutrition; Z68.41 Body mass index [BMI] 40.0-44.9, adult; E11.69 Type 2 diabetes mellitus with other specified complication; F41.9 Anxiety disorder, unspecified; I10 Essential (primary) hypertension; G43.909 Migraine, unspecified, not intractable, without status migrainosus; E66.01 Morbid (severe) obesity due to excess calories; E11.65 Type 2 diabetes mellitus with hyperglycemia; E87.8 Other disorders of electrolyte and fluid balance, not elsewhere classified; Z90.49 Acquired absence of other specified parts of digestive tract; Z78.9 Other specified health status; Z88.8 Allergy status to other drugs, medicaments and biological substances; Z83.3 Family history of diabetes mellitus; Z82.3 Family history of stroke; Z87.442 Personal history of urinary calculi; Z90.5 Acquired absence of kidney; Z79.899 Other long term (current) drug therapy

== ENCOUNTER → 2020-09-12 | Outpatient (CLI) | payer BC ==
[~2020-09-12] MED LIST changes: +BUSPAR5 MG PO; +VICTOZA 3-0.6 MG/0.1 SQ; +VITAMIN D350 MC2 PO
== END | disposition home or self-care (01) ==
LOC: COVID19 11:28
PROVIDERS: ATTEND Nurse Practitioner Primary Care
DX: Z20.828 Contact with and (suspected) exposure to other viral communicable diseases (principal)

== ENCOUNTER 2020-09-16 09:42 | Emergency (ER) | payer BC ==
[~2020-09-16] VITALS: Ht 172.7 cm; Wt 122.5 kg
== END 2020-09-16 11:36 | disposition home or self-care (01) ==
LOC: ED 09:42
DX: S93.401A Sprain of unspecified ligament of right ankle, initial encounter (principal); Z88.2 Allergy status to sulfonamides; Z79.899 Other long term (current) drug therapy; X50.1XXA Overexertion from prolonged static or awkward postures, initial encounter; Y93.89 Activity, other specified; Y92.89 Other specified places as the place of occurrence of the external cause; Y99.8 Other external cause status

== ENCOUNTER → 2020-11-12 | Outpatient (CLI) | payer BC | END | disposition home or self-care (01) | LOC: COVID19 11:49 | PROVIDERS: ATTEND Nurse Practitioner Primary Care | DX: Z20.828 Contact with and (suspected) exposure to other viral communicable diseases (principal) ==

== ENCOUNTER → 2021-01-30 | Outpatient (CLI) | payer BC | END | disposition home or self-care (01) | LOC: RESCLI 02:03 | PROVIDERS: ATTEND Internal Medicine Nephrology | DX: M25.532 Pain in left wrist (principal); M25.531 Pain in right wrist; E11.9 Type 2 diabetes mellitus without complications; E55.9 Vitamin D deficiency, unspecified; I10 Essential (primary) hypertension; G43.909 Migraine, unspecified, not intractable, without status migrainosus; Z79.899 Other long term (current) drug therapy; Z98.890 Other specified postprocedural states ==

== ENCOUNTER → 2021-04-04 | Outpatient (CLI) | payer BC | END | disposition home or self-care (01) | LOC: US 03-06 15:00 | PROVIDERS: ATTEND Obstetrics & Gynecology | DX: N93.9 Abnormal uterine and vaginal bleeding, unspecified (principal) ==

== ENCOUNTER → 2021-06-17 | Outpatient (CLI) | payer BC ==
[2021-06-17 10:35] LABS: BILIRUBIN Negative (Negative); BLOOD Trace-Lysed (Negative); CLARITY Clear (Clear); COLOR Yellow (Yellow); GLUCOSE Negative (Negative); KETONE Negative (Negative); LEUKO ESTERASE Negative (Negative); NITRITE Negative (Negative); SPECIFIC GRAVITY 1.015 (1.001-1.030); UROBILINOGEN 0.2 E.U./dl (0.0-1.0)
[2021-06-17 10:56] LABS: BACTERIA 2+; WBC 0-2 wbc/hpf (0-5)
[2021-06-17 11:04] LABS: ALBUMIN 3.2 gm/dl (3.1-4.5); BUN 17 mg/dl (7-24); CHLORIDE 107 mmol/L (98-107); CREATININE 0.73 mg/dL (0.55-1.02); POTASSIUM 4.1 mmol/L (3.5-5.1); SODIUM 139 mmol/L (136-145)
[2021-06-17 11:05] LABS: URINE CREATININE RANDOM 68.1 mg/dL
== END | disposition home or self-care (01) ==
LOC: LAB 09:55
PROVIDERS: ATTEND Podiatrist
DX: M77.32 Calcaneal spur, left foot (principal); R73.01 Impaired fasting glucose; R80.9 Proteinuria, unspecified

== ENCOUNTER → 2021-12-06 | Outpatient (CLI) | payer BC | END | disposition home or self-care (01) | LOC: US 08:17 | PROVIDERS: ATTEND Nurse Practitioner Primary Care | DX: K76.0 Fatty (change of) liver, not elsewhere classified (principal); Z90.49 Acquired absence of other specified parts of digestive tract; Z90.5 Acquired absence of kidney ==

== ENCOUNTER → 2022-03-19 | Outpatient (CLI) | payer BC | END | disposition home or self-care (01) | LOC: RAD 11:34 | PROVIDERS: ATTEND Family Medicine | DX: M25.511 Pain in right shoulder (principal) ==

== ENCOUNTER → 2022-04-08 | Outpatient (CLI) | payer BC | END | disposition home or self-care (01) | LOC: MRI 09:00 | PROVIDERS: ATTEND Family Medicine | DX: M75.51 Bursitis of right shoulder (principal); M77.8 Other enthesopathies, not elsewhere classified ==

== ENCOUNTER → 2022-06-13 | Outpatient (CLI) | payer BC ==
[2022-06-13 17:00] LABS: BILIRUBIN Negative (Negative); BLOOD Negative (Negative); CLARITY Clear (Clear); COLOR Yellow (Yellow); GLUCOSE Trace (Negative); KETONE Negative (Negative); LEUKO ESTERASE Trace (Negative); NITRITE Negative (Negative)
[2022-06-13 17:09] LABS: BACTERIA 3+; EPITHELIAL CELLS TNTC; RBC 0-2 rbc/hpf (0-2)
[2022-06-13 17:12] LABS: BUN 12 mg/dl (7-24); CHLORIDE 108 mmol/L (98-107); CREATININE 1.07 mg/dL (0.55-1.02); POTASSIUM 3.8 mmol/L (3.5-5.1); SODIUM 141 mmol/L (136-145)
[2022-06-13 17:14] LABS: URIC ACID 6.4 mg/dL (2.6-6.0)
== END | disposition home or self-care (01) ==
LOC: LAB 16:18
PROVIDERS: ATTEND Internal Medicine Nephrology
DX: M10.9 Gout, unspecified (principal); R73.01 Impaired fasting glucose; R80.9 Proteinuria, unspecified

== ENCOUNTER → 2022-07-14 | Outpatient (CLI) | payer BC ==
[2022-07-15 07:06] LABS: RHEUMATOID FACTOR <10.0 IU/mL (<14.0)
== END | disposition home or self-care (01) ==
LOC: LAB 16:31
PROVIDERS: ATTEND Family Medicine
DX: M13.0 Polyarthritis, unspecified (principal)

== ENCOUNTER → 2022-12-18 | Outpatient (CLI) | payer BC ==
[2022-12-18 16:49] LABS: BILIRUBIN Negative (Negative); BLOOD Negative (Negative); CLARITY Clear (Clear); COLOR Yellow (Yellow); GLUCOSE 1+ (Negative); KETONE Negative (Negative); LEUKO ESTERASE Negative (Negative); NITRITE Negative (Negative); UROBILINOGEN 0.2 E.U./dl (0.0-1.0)
[2022-12-18 16:55] LABS: BACTERIA 1+; HYALINE CAST 0-2; MUCOUS 1+; WBC 0-2 wbc/hpf (0-5)
[2022-12-18 16:57] LABS: URINE CREATININE RANDOM 61.41 mg/dL
[2022-12-18 17:03] LABS: BUN 13 mg/dl (9-23); CHLORIDE 99 mmol/L (98-107); POTASSIUM 3.7 mmol/L (3.4-5.1); URIC ACID 6.3 mg/dL (3.1-7.8)
== END | disposition home or self-care (01) ==
LOC: LAB 16:20
PROVIDERS: ATTEND Internal Medicine Nephrology
DX: M10.9 Gout, unspecified (principal); R80.9 Proteinuria, unspecified; R73.01 Impaired fasting glucose

== ENCOUNTER → 2023-01-28 | Outpatient (CLI) | payer BC | END | disposition home or self-care (01) | LOC: US 00:49 | PROVIDERS: ATTEND Internal Medicine | DX: E04.1 Nontoxic single thyroid nodule (principal) ==

== ENCOUNTER → 2023-02-10 | Outpatient (CLI) | payer BC | END | disposition home or self-care (01) | LOC: RESCLI 13:23 | PROVIDERS: ATTEND Internal Medicine | DX: E11.9 Type 2 diabetes mellitus without complications (principal); I10 Essential (primary) hypertension; F39 Unspecified mood [affective] disorder; M13.0 Polyarthritis, unspecified; F10.90 Alcohol use, unspecified, uncomplicated; Z88.1 Allergy status to other antibiotic agents; Z91.048 Other nonmedicinal substance allergy status; Z98.890 Other specified postprocedural states; Z87.891 Personal history of nicotine dependence; Z79.899 Other long term (current) drug therapy ==

== ENCOUNTER → 2023-12-14 | Outpatient (CLI) | payer BC ==
[2023-12-14 16:23] LABS: BASO # 0.1 10*3/uL (0.0-0.1); BASO % 0.9 % (0.0-1.0); EOS # 0.2 10*3/uL (0.0-0.4); EOS % 2.4 % (1.0-4.0); HEMATOCRIT 43.8 % (37.0-47.0); LYMPH # 2.6 10*3/uL (1.3-4.4); LYMPH % 38.3 % (27.0-41.0); MEAN CELL VOLUME 92.8 fl (81.0-99.0); MEAN CORPUSCULAR HGB 31.1 pg (27.0-31.0); MEAN CORPUSCULAR HGB CONC 33.6 g/dl (33.0-37.0); MEAN PLATELET VOLUME 9.6 fl (9.6-12.3); MONO # 0.3 10*3/uL (0.1-1.0); NEUT # 3.6 10*3/uL (2.3-7.9); NEUT % 53.3 % (47.0-73.0); PLATELET COUNT AUTOMATED 261 10*3/uL (130-400); RED BLOOD COUNT 4.72 10*6/uL (4.10-5.10); RED CELL DISTRI WIDTH 13.6 % (0-14.5); WHITE BLOOD COUNT 6.7 10*3/uL (4.8-10.8)
[2023-12-14 16:28] LABS: BILIRUBIN Negative (Negative); BLOOD Negative (Negative); CLARITY Clear (Clear); COLOR Yellow (Yellow); GLUCOSE 3+ (Negative); KETONE 3+ (Negative); LEUKO ESTERASE Negative (Negative); NITRITE Negative (Negative); SPECIFIC GRAVITY 1.025 (1.001-1.030); UROBILINOGEN 0.2 E.U./dl (0.0-1.0)
[2023-12-14 16:39] LABS: URINE CREATININE RANDOM 128.2 mg/dL
[2023-12-14 16:45] LABS: BACTERIA 4+; BUN 15 mg/dl (9-23); CHLORIDE 106 mmol/L (98-107); POTASSIUM 3.4 mmol/L (3.4-5.1); URIC ACID 7.4 mg/dL (3.1-7.8)
[2023-12-14 16:56] LABS: VITAMIN D, 25-HYDROXY 42.9 ng/mL (30-100)
== END | disposition home or self-care (01) ==
LOC: LAB 16:01
PROVIDERS: ATTEND Internal Medicine Nephrology
DX: E11.22 Type 2 diabetes mellitus with diabetic chronic kidney disease (principal); N18.2 Chronic kidney disease, stage 2 (mild); M10.9 Gout, unspecified; E11.21 Type 2 diabetes mellitus with diabetic nephropathy; R80.9 Proteinuria, unspecified

== ENCOUNTER → 2024-02-05 | Outpatient (CLI) | payer BC | END | disposition home or self-care (01) | LOC: RAD 09:47 | PROVIDERS: ATTEND Internal Medicine | DX: M25.551 Pain in right hip (principal) ==

== ENCOUNTER → 2024-04-01 | Outpatient (CLI) | payer BC | END | disposition home or self-care (01) | LOC: MRI 00:45 | PROVIDERS: ATTEND Chiropractor | DX: M16.0 Bilateral primary osteoarthritis of hip (principal); M25.551 Pain in right hip ==

== ENCOUNTER → 2024-05-16 | Outpatient (CLI) | payer BC | END | disposition home or self-care (01) | LOC: RESCLI 01:39 | PROVIDERS: ATTEND Student in an Organized Health Care Education/Training Program | DX: I12.9 Hypertensive chronic kidney disease with stage 1 through stage 4 chronic kidney disease, or unspecified chronic kidney disease (principal); E11.22 Type 2 diabetes mellitus with diabetic chronic kidney disease; N18.9 Chronic kidney disease, unspecified; M25.551 Pain in right hip; F90.9 Attention-deficit hyperactivity disorder, unspecified type; F41.1 Generalized anxiety disorder; E78.5 Hyperlipidemia, unspecified; M10.9 Gout, unspecified; F39 Unspecified mood [affective] disorder; Z79.899 Other long term (current) drug therapy ==

== ENCOUNTER → 2024-05-19 | Outpatient (CLI) | payer BC ==
[~2024-05-19] MED LIST changes: +Technetium Tc 99M Medronate 1 KIT KIT IV SCH
== END | disposition home or self-care (01) ==
LOC: NM 09:46
PROVIDERS: ATTEND Orthopaedic Surgery
DX: M17.0 Bilateral primary osteoarthritis of knee (principal); M16.0 Bilateral primary osteoarthritis of hip; M19.012 Primary osteoarthritis, left shoulder; M19.011 Primary osteoarthritis, right shoulder; M89.8X9 Other specified disorders of bone, unspecified site; M89.9 Disorder of bone, unspecified

== ENCOUNTER → 2024-07-12 | Outpatient (CLI) | payer BC ==
[~2024-07-12] MED LIST changes: +GADOTERATE MEGLUMINE 5 MMOL/10 ML VIAL IV ONE; +IOHEXOL 240 MG/ML 10 ML SOL IJ ONE; +IOHEXOL 240 MG/ML 10 ML SOL ONE; +Lidocaine Hydrochloride 5 ML AMP IJ ONE; +Lidocaine Hydrochloride 5 ML AMP ONE; +SODIUM BICARBONATE 4.2% 5 ML VIAL IJ ONE; +SODIUM BICARBONATE 4.2% 5 ML VIAL ONE; +SODIUM CHLORIDE 0.9% 10 ML VIAL IJ ONE; +SODIUM CHLORIDE 0.9% 10 ML VIAL ONE; +SODIUM CHLORIDE 0.9% 500 ML IV ONE; -Technetium Tc 99M Medronate 1 KIT KIT IV SCH
== END | disposition home or self-care (01) ==
LOC: RAD 06-28 10:00 → MRI 06-28 11:00 → EDSTATUS 10:00
PROVIDERS: ATTEND Orthopaedic Surgery
DX: M25.551 Pain in right hip (principal); I10 Essential (primary) hypertension; E11.9 Type 2 diabetes mellitus without complications; Z90.5 Acquired absence of kidney

== ENCOUNTER 2024-09-29 17:31 | Emergency (ER) | payer BC ==
[~2024-09-29] VITALS: Ht 172.7 cm; Wt 113.4 kg
[~2024-09-29 17:31] MED LIST changes: -GADOTERATE MEGLUMINE 5 MMOL/10 ML VIAL IV ONE; -IOHEXOL 240 MG/ML 10 ML SOL IJ ONE; -IOHEXOL 240 MG/ML 10 ML SOL ONE; -Lidocaine Hydrochloride 5 ML AMP IJ ONE; -Lidocaine Hydrochloride 5 ML AMP ONE; -SODIUM BICARBONATE 4.2% 5 ML VIAL IJ ONE; -SODIUM BICARBONATE 4.2% 5 ML VIAL ONE; -SODIUM CHLORIDE 0.9% 10 ML VIAL IJ ONE; -SODIUM CHLORIDE 0.9% 10 ML VIAL ONE; -SODIUM CHLORIDE 0.9% 500 ML IV ONE
[2024-09-29] MEDS ORDERED: ADDERALL 20 MG20 MG PO (17:55)
[2024-09-29] MEDS ORDERED: HYDROCHLOROTH12.5 M2 PO (17:56)
[2024-09-29] MEDS ORDERED: Doxycycline Hyclate 100 MG CAP PO ONE (19:50)
[2024-09-29 20:03] LABS: BASO # 0.1 10*3/uL (0.0-0.1); BASO % 0.7 % (0.0-1.0); EOS # 0.1 10*3/uL (0.0-0.4); EOS % 1.2 % (1.0-4.0); HEMATOCRIT 41.3 % (37.0-47.0); MEAN CELL VOLUME 91.4 fl (81.0-99.0); MEAN CORPUSCULAR HGB CONC 33.9 g/dl (33.0-37.0); MEAN PLATELET VOLUME 9.1 fl (9.6-12.3); MONO # 0.6 10*3/uL (0.1-1.0); MONO % 6.3 % (3.0-9.0); NEUT % 65.1 % (47.0-73.0); PLATELET COUNT AUTOMATED 295 10*3/uL (130-400); RED BLOOD COUNT 4.52 10*6/uL (4.10-5.10); RED CELL DISTRI WIDTH 13.2 % (0-14.5); WHITE BLOOD COUNT 9.2 10*3/uL (4.8-10.8)
[2024-09-29] MEDS ORDERED: VIBRAMYCIN100 MG PO (20:24)
== END 2024-09-29 20:27 | disposition home or self-care (01) ==
LOC: ED 17:31
PROVIDERS: Internal Medicine
DX: L03.211 Cellulitis of face (principal); Z88.2 Allergy status to sulfonamides; Z88.8 Allergy status to other drugs, medicaments and biological substances; Z98.890 Other specified postprocedural states; Z90.49 Acquired absence of other specified parts of digestive tract

== ENCOUNTER → 2025-01-06 | Outpatient (CLI) | payer BC ==
[~2025-01-06] MED LIST changes: +ADDERALL 20 MG20 MG PO; +HYDROCHLOROTH12.5 M2 PO; +VIBRAMYCIN100 MG PO
[2025-01-06 13:36] LABS: BASO # 0.1 10*3/uL (0.0-0.1); BASO % 0.8 % (0.0-1.0); BILIRUBIN Negative (Negative); BLOOD Trace-Lysed (Negative); CLARITY Clear (Clear); COLOR Dark Yellow (Yellow); EOS # 0.1 10*3/uL (0.0-0.4); EOS % 1.3 % (1.0-4.0); GLUCOSE Negative (Negative); HEMATOCRIT 43.1 % (37.0-47.0); KETONE Trace (Negative); LEUKO ESTERASE Negative (Negative); MEAN CELL VOLUME 92.3 fl (81.0-99.0); MEAN CORPUSCULAR HGB CONC 33.6 g/dl (33.0-37.0); MEAN PLATELET VOLUME 9.3 fl (9.6-12.3); MONO # 0.4 10*3/uL (0.1-1.0); NEUT # 4.1 10*3/uL (2.3-7.9); NEUT % 58.1 % (47.0-73.0); NITRITE Negative (Negative); PH 6.5 (4.5-8.0); PLATELET COUNT AUTOMATED 334 10*3/uL (130-400); RED BLOOD COUNT 4.67 10*6/uL (4.10-5.10); RED CELL DISTRI WIDTH 12.4 % (0-14.5); UROBILINOGEN 0.2 E.U./dl (0.0-1.0); WHITE BLOOD COUNT 7.1 10*3/uL (4.8-10.8)
[2025-01-06 13:57] LABS: BACTERIA 2+; BUN 9 mg/dl (9-23); CHLORIDE 103 mmol/L (98-107); MUCOUS 2+; POTASSIUM 4.1 mmol/L (3.4-5.1); URIC ACID 5.2 mg/dL (3.1-7.8); WBC 0-2 wbc/hpf (0-5)
[2025-01-06 14:15] LABS: VITAMIN D, 25-HYDROXY 34.4 ng/mL (30-100)
== END | disposition home or self-care (01) ==
LOC: LAB 13:13
PROVIDERS: ATTEND Internal Medicine Nephrology
DX: E11.21 Type 2 diabetes mellitus with diabetic nephropathy (principal); E11.22 Type 2 diabetes mellitus with diabetic chronic kidney disease; N18.2 Chronic kidney disease, stage 2 (mild); R80.9 Proteinuria, unspecified; M10.9 Gout, unspecified

== ENCOUNTER → 2025-05-12 | Outpatient (CLI) | payer BC ==
[2025-05-12 14:00] LABS: BILIRUBIN Negative (Negative); BLOOD Negative (Negative); CLARITY Cloudy (Clear); COLOR Yellow (Yellow); GLUCOSE Negative (Negative); KETONE Negative (Negative); LEUKO ESTERASE 1+ (Negative); NITRITE Negative (Negative); PH 6.5 (4.5-8.0); SPECIFIC GRAVITY 1.015 (1.001-1.030); UROBILINOGEN 0.2 E.U./dl (0.0-1.0)
[2025-05-12 14:36] LABS: BUN 15 mg/dl (9-23); CHLORIDE 102 mmol/L (98-107)
[2025-05-12 15:00] LABS: BACTERIA 2+; MUCOUS TRACE; WBC 16-20 wbc/hpf (0-5)
== END | disposition home or self-care (01) ==
LOC: LAB 13:36
PROVIDERS: ATTEND Internal Medicine Nephrology
DX: N18.2 Chronic kidney disease, stage 2 (mild) (principal); R80.9 Proteinuria, unspecified

== ENCOUNTER → 2025-07-18 | Outpatient (CLI) | payer BC ==
[2025-07-18 18:04] LABS: BASO # 0.1 10*3/uL (0.0-0.1); BASO % 0.7 % (0.0-1.0); EOS # 0.1 10*3/uL (0.0-0.4); EOS % 1.2 % (1.0-4.0); MEAN CELL VOLUME 93.2 fl (81.0-99.0); MEAN CORPUSCULAR HGB 32.7 pg (27.0-31.0); MEAN PLATELET VOLUME 9.6 fl (9.6-12.3); MONO # 0.5 10*3/uL (0.1-1.0); MONO % 5.3 % (3.0-9.0); NEUT # 5.7 10*3/uL (2.3-7.9); NEUT % 66.5 % (47.0-73.0); NUCLEATED RED BLOOD CELL 0.0 % (0.0-0.0); NUCLEATED RED BLOOD CELL 0.0 10*3/uL (0.0-0.0); PLATELET COUNT AUTOMATED 308 10*3/uL (130-400); RED CELL DISTRI WIDTH 13.2 % (0-14.5)
== END ==
LOC: LAB 17:24
PROVIDERS: ATTEND Orthopaedic Surgery
DX: M25.551 Pain in right hip (principal)

== ENCOUNTER 2025-08-10 11:40 | Emergency (ER) | payer BC ==
[~2025-08-10] VITALS: Ht 172.7 cm; Wt 108.9 kg
[2025-08-10 12:09] LABS: BILIRUBIN Negative (Negative); BLOOD 2+ (Negative); CLARITY Cloudy (Clear); COLOR Yellow (Yellow); KETONE Trace (Negative); LEUKO ESTERASE Negative (Negative); NITRITE Negative (Negative); PH 6.0 (4.5-8.0); SPECIFIC GRAVITY >= 1.030 (1.001-1.030); UROBILINOGEN 1.0 E.U./dl (0.0-1.0)
[2025-08-10] MEDS ORDERED: SODIUM CHLORIDE 0.9% 1,000 ML IV ONE (12:10)
[2025-08-10 12:22] LABS: BACTERIA 2+; MUCOUS 1+
[2025-08-10 12:33] LABS: BASO # 0.1 10*3/uL (0.0-0.1); BASO % 0.4 % (0.0-1.0); EOS # 0.1 10*3/uL (0.0-0.4); EOS % 0.6 % (1.0-4.0); MEAN CELL VOLUME 92.3 fl (81.0-99.0); MEAN CORPUSCULAR HGB 31.4 pg (27.0-31.0); MEAN PLATELET VOLUME 9.1 fl (9.6-12.3); MONO # 1.1 10*3/uL (0.1-1.0); MONO % 7.1 % (3.0-9.0); NEUT # 10.7 10*3/uL (2.3-7.9); NEUT % 69.7 % (47.0-73.0); NUCLEATED RED BLOOD CELL 0.0 % (0.0-0.0); NUCLEATED RED BLOOD CELL 0.0 10*3/uL (0.0-0.0); PLATELET COUNT AUTOMATED 378 10*3/uL (130-400); RED CELL DISTRI WIDTH 13.4 % (0-14.5)
[2025-08-10 12:56] LABS: BUN 15.0 mg/dl (9-23); SGPT/ALT 12.0 U/L (5-49)
[2025-08-10] MEDS ORDERED: LEVOFLOXACIN500 MG PO (14:06)
== END 2025-08-10 14:12 | disposition home or self-care (01) ==
LOC: ED 11:40
PROVIDERS: Emergency Medicine
DX: E86.0 Dehydration (principal); Z91.048 Other nonmedicinal substance allergy status; Z88.2 Allergy status to sulfonamides; Z79.899 Other long term (current) drug therapy; Z90.49 Acquired absence of other specified parts of digestive tract; Z87.42 Personal history of other diseases of the female genital tract; Z90.5 Acquired absence of kidney